=== PATIENT | female | born 1940 | race Asian ===

== ENCOUNTER 2017-08-22 06:40 | Inpatient (IN) | payer MEDICARE ==
[~2017-08-22] VITALS: Ht 154.9 cm; Wt 62.3 kg
[~2017-08-22 06:40] MED LIST: LOVA20TA2 PO
[2017-08-22] MEDS ORDERED: SODIUM CHLORIDE 0.9% 1,000ML IVBOLUS ONE (07:30)
[2017-08-22 07:33] LABS: HEMATOCRIT 40.5 % (34.6-47.8); HEMOGLOBIN 13.4 g/dL (11.7-16.4); WHITE BLOOD COUNT 13.8 x10^3/uL (3.4-10)
[2017-08-22 07:42] LABS: ASPARTATE AMINO TRANSFERASE 47 U/L (15-37); BLOOD UREA NITROGEN 7 mg/dL (7-18)
[2017-08-22] MEDS ORDERED: OMNIPAQUE 350 MG/ML, 100ML BOTTLE ONE (08:12)
[2017-08-22 08:57] LABS: PATH.CAST-FLAG NOT PRESENT; SPERM-FLAG NOT PRESENT; SRC-FLAG NOT PRESENT; XTAL-FLAG NOT PRESENT; YLC-FLAG NOT PRESENT
[2017-08-22] MEDS ORDERED: CEFOTETAN PMX 2GM/50ML 50 ML IV ONE (09:00)
[2017-08-22] MEDS: METRONIDAZOLE PMX 500MG/100ML 100 ML IV ONE ×2 (09:00→10:10)
[2017-08-22] MEDS ORDERED: METRONIDAZOLE PMX 500MG/100ML 100 ML ONE (09:16)
[2017-08-22] MEDS ORDERED: ONDANSETRON 2MG/ML, 2ML IVPush PRN (11:30)
[2017-08-22 12:08] VITALS: BP 128/73
[2017-08-22] MEDS: morphine SULFATE 10 MG/ML, 1ML IVPush PRN ×3 (12:45→23:31)
[2017-08-22] MEDS: NS + 20MEQ KCL 1,000 ML IV SCH ×2 (12:45→23:31)
[2017-08-22] MEDS ORDERED: FENTANYL PF 100 MCG/2ML ONE (13:03)
[2017-08-22] MEDS ORDERED: FLUMAZENIL 0.1 MG/1 ML, 5ML ONE (13:03)
[2017-08-22] MEDS ORDERED: MIDAZOLAM 1 MG/ML, 5ML ONE (13:03)
[2017-08-22] MEDS ORDERED: LIDOCAINE 1%, 20ML ONE (13:04)
[2017-08-22] MEDS ORDERED: NALOXONE 1 MG/ML, 2ML ONE (13:04)
[2017-08-22 14:34] VITALS: BP 139/72
[2017-08-22] MEDS ORDERED: LABETALOL 5MG/ML, 20ML IVPush PRN (15:00)
[2017-08-22] MEDS ORDERED: ACETAMINOPHEN 325 MG TABLET PO PRN (15:00)
[2017-08-22] MEDS: PIPERACILLIN/TAZO/PMX 3.375GM 50 ML IV SCH ×2 (16:26→22:24)
[2017-08-22] MEDS: HEPARIN 5,000 UNITS/ML, 1ML SQ SCH ×2 (16:26→23:31)
[2017-08-22 21:35] VITALS: BP 114/60
[2017-08-22] MEDS: LOVASTATIN 40 MG TABLET PO SCH (22:24)
[2017-08-23 02:38] VITALS: BP 110/62
[2017-08-23] MEDS: PIPERACILLIN/TAZO/PMX 3.375GM 50 ML IV SCH ×4 (04:07→22:25)
[2017-08-23] MEDS: morphine SULFATE 10 MG/ML, 1ML IVPush PRN ×4 (05:35→20:17)
[2017-08-23 06:49] LABS: HEMATOCRIT 36.2 % (34.6-47.8); HEMOGLOBIN 12.3 g/dL (11.7-16.4); WHITE BLOOD COUNT 16.3 x10^3/uL (3.4-10)
[2017-08-23 07:01] LABS: BLOOD UREA NITROGEN 7 mg/dL (7-18)
[2017-08-23 07:19] VITALS: BP 108/63
[2017-08-23] MEDS: HEPARIN 5,000 UNITS/ML, 1ML SQ SCH ×2 (09:13→16:24)
[2017-08-23] MEDS: NS + 20MEQ KCL 1,000 ML IV SCH ×2 (12:15→22:25)
[2017-08-23 15:06] VITALS: BP 110/60
[2017-08-23 19:45] VITALS: BP 111/66
[2017-08-23] MEDS: LOVASTATIN 40 MG TABLET PO SCH (20:16)
[2017-08-24] MEDS: HEPARIN 5,000 UNITS/ML, 1ML SQ SCH ×4 (00:25→23:57)
[2017-08-24] MEDS: HYDROcodone/APAP 5/325 TABLET PO PRN ×4 (00:42→20:47)
[2017-08-24 00:45] VITALS: BP 120/69
[2017-08-24] MEDS: PIPERACILLIN/TAZO/PMX 3.375GM 50 ML IV SCH ×4 (04:17→23:56)
[2017-08-24 06:07] LABS: HEMATOCRIT 34.9 % (34.6-47.8); HEMOGLOBIN 11.7 g/dL (11.7-16.4); WHITE BLOOD COUNT 13.1 x10^3/uL (3.4-10)
[2017-08-24 06:12] LABS: BLOOD UREA NITROGEN 6 mg/dL (7-18)
[2017-08-24 07:43] VITALS: BP 124/69
[2017-08-24] MEDS: NS + 20MEQ KCL 1,000 ML IV SCH ×2 (09:08→20:47)
[2017-08-24 12:31] VITALS: BP 126/70
[2017-08-24 18:23] VITALS: BP 115/68
[2017-08-24] MEDS: LOVASTATIN 40 MG TABLET PO SCH (20:47)
[2017-08-25 00:10] VITALS: BP 118/67
[2017-08-25] MEDS: HYDROcodone/APAP 5/325 TABLET PO PRN ×4 (01:43→22:53)
[2017-08-25 01:56] VITALS: BP 139/75
[2017-08-25] MEDS: NS + 20MEQ KCL 1,000 ML IV SCH ×2 (05:58→17:52)
[2017-08-25] MEDS: PIPERACILLIN/TAZO/PMX 3.375GM 50 ML IV SCH ×4 (05:58→23:51)
[2017-08-25 06:13] LABS: HEMATOCRIT 38.1 % (34.6-47.8); HEMOGLOBIN 12.7 g/dL (11.7-16.4); WHITE BLOOD COUNT 9.8 x10^3/uL (3.4-10)
[2017-08-25 06:40] LABS: ASPARTATE AMINO TRANSFERASE 19 U/L (15-37); BLOOD UREA NITROGEN 6 mg/dL (7-18)
[2017-08-25 06:52] VITALS: BP 128/68
[2017-08-25] MEDS: HEPARIN 5,000 UNITS/ML, 1ML SQ SCH ×3 (08:04→23:51)
[2017-08-25 12:57] VITALS: BP 121/69
[2017-08-25] MEDS ORDERED: ACETAMINOPHEN 325 MG TABLET PO PRN (18:30)
[2017-08-25] MEDS ORDERED: LABETALOL 5MG/ML, 20ML IVPush PRN (18:30)
[2017-08-25] MEDS ORDERED: ONDANSETRON 2MG/ML, 2ML IVPush PRN (18:30)
[2017-08-25 18:39] VITALS: BP 122/68
[2017-08-25] MEDS: LOVASTATIN 40 MG TABLET PO SCH (20:29)
[2017-08-26] MEDS: morphine SULFATE 10 MG/ML, 1ML IVPush PRN (00:15)
[2017-08-26 00:17] VITALS: BP 130/67
[2017-08-26] MEDS: HYDROcodone/APAP 5/325 TABLET PO PRN ×3 (05:09→17:56)
[2017-08-26] MEDS: PIPERACILLIN/TAZO/PMX 3.375GM 50 ML IV SCH ×3 (05:43→18:09)
[2017-08-26] MEDS: NS + 20MEQ KCL 1,000 ML IV SCH ×2 (05:43→14:42)
[2017-08-26 06:36] VITALS: BP 129/66
[2017-08-26] MEDS: HEPARIN 5,000 UNITS/ML, 1ML SQ SCH ×2 (09:44→16:28)
[2017-08-26 13:22] VITALS: BP 123/70
[2017-08-26 14:32] VITALS: BP 114/67
[2017-08-26] MEDS: LOVASTATIN 40 MG TABLET PO SCH (20:26)
[2017-08-26 20:36] VITALS: BP 150/74
[2017-08-27] MEDS: HYDROcodone/APAP 5/325 TABLET PO PRN ×3 (00:06→15:25)
[2017-08-27] MEDS: HEPARIN 5,000 UNITS/ML, 1ML SQ SCH ×2 (00:11→08:10)
[2017-08-27 01:00] VITALS: BP 116/71
[2017-08-27] MEDS: PIPERACILLIN/TAZO/PMX 3.375GM 50 ML IV SCH ×3 (01:13→12:00)
[2017-08-27] MEDS: NS + 20MEQ KCL 1,000 ML IV SCH ×2 (01:13→12:00)
[2017-08-27] MEDS: morphine SULFATE 10 MG/ML, 1ML IVPush PRN (05:55)
[2017-08-27 06:55] VITALS: BP 142/67
[2017-08-27 12:27] VITALS: BP 123/63
[2017-08-27] MEDS ORDERED: CIPR250T27 PO (13:20)
[2017-08-27] MEDS ORDERED: METR500T8 PO (13:20)
== END 2017-08-27 15:45 | disposition home or self-care (01) | DRG 391 ==
LOC: ED 07:16 → EDIP 10:05 → 4EST 11:51
PROVIDERS: ADMIT Family Medicine; ATTEND Family Medicine
PROC: 0W9J30Z Drainage of Pelvic Cavity with Drainage Device, Percutaneous Approach (ICD-10-PCS; principal; 2017-08-22)
DX: K57.20 Diverticulitis of large intestine with perforation and abscess without bleeding (principal); E43 Unspecified severe protein-calorie malnutrition; N13.30 Unspecified hydronephrosis; D72.829 Elevated white blood cell count, unspecified; E78.5 Hyperlipidemia, unspecified; E78.00 Pure hypercholesterolemia, unspecified; K80.20 Calculus of gallbladder without cholecystitis without obstruction; M19.90 Unspecified osteoarthritis, unspecified site
CPT/HCPCS: 36415; 49406; 74177; 75989; 80048; 80053; 81001; 83605; 83690; 84145; 85025; 87040; 87070; 87075; 87077; 87086; 87186; 87205; 96361; 96365; 96367; 99156; 99157; C1894; J1644; J2250; J2543; J3010; J3480; J3490; Q9967; C1729; C1769; J2270; J2310; J7030; S0074

== ENCOUNTER → 2017-09-17 | Outpatient (CLI) | payer MEDICARE ==
[~2017-09-17] MED LIST changes: +CIPR250T27 PO; +METR500T8 PO
== END | disposition home or self-care (01) ==
LOC: CFH 12:26
PROVIDERS: ATTEND Family Medicine
DX: Z12.31 Encounter for screening mammogram for malignant neoplasm of breast (principal)
CPT/HCPCS: 77063; G0202

== ENCOUNTER → 2017-10-26 | Outpatient (CLI) | payer MEDICARE ==
[~2017-10-26] MED LIST changes: +MULT-717 PO
[2017-10-26 13:27] LABS: BASOPHILS # (AUTO) 0.04 x10^3/uL (0-0.1); BASOPHILS % (AUTO) 1 % (0-1); EOSINOPHILS # (AUTO) 0.14 x10^3/uL (0-0.4); EOSINOPHILS % (AUTO) 2 % (1-7); LYMPHOCYTES # (AUTO) 1.74 x10^3/uL (1-3.4); LYMPHOCYTES % (AUTO) 28 % (22-44); MD NO; MEAN CORPUSCULAR HEMOGLOBIN 30.8 pg (27.0-34.8); MEAN CORPUSCULAR HGB CONC 33.8 g/dL (32.4-35.8); MEAN CORPUSCULAR VOLUME 91.1 fL (80-100); MEAN PLATELET VOLUME 8.8 fL (7.4-10.4); MONOCYTES # (AUTO) 0.49 x10^3/uL (0.2-0.8); MONOCYTES % (AUTO) 8 % (2-9); NEUTROPHILS # (AUTO) 3.73 x10^3/uL (1.8-6.8); NEUTROPHILS % (AUTO) 61 % (42-75); PLATELET COUNT 226 x10^3/uL (130-400); RED BLOOD COUNT 4.54 x10^6/uL (3.82-5.3); RED CELL DISTRIBUTION WIDTH 14.5 % (9.6-15.2)
[2017-10-26 13:32] LABS: ALBUMIN 3.5 g/dL (3.4-5.0); ANION GAP 8 mmol/L (5-15); CALCIUM 8.5 mg/dL (8.5-10.1); CHLORIDE 106 mmol/L (98-107)
[2017-10-26 13:35] LABS: ALANINE AMINOTRANSFERASE 31 U/L (12-78); ALKALINE PHOSPHATASE 66 U/L (45-117); BILIRUBIN,TOTAL 0.3 mg/dL (0.2-1.0); CREATININE 0.75 mg/dL (0.55-1.02)
== END | disposition home or self-care (01) ==
LOC: STAR 12:25
PROVIDERS: ATTEND Surgery
DX: Z01.818 Encounter for other preprocedural examination (principal)
CPT/HCPCS: 36415; 80053; 85025; 93005

== ENCOUNTER 2017-10-31 08:13 | Inpatient (IN) | payer MEDICARE ==
[2017-10-26 12:59] VITALS: BP 127/83
[~2017-10-31] VITALS: Ht 154.9 cm; Wt 63.3 kg
[~2017-10-31 08:13] MED LIST changes: +BUPIVACAINE/PF 0.5% ONE
[2017-10-31] MEDS ORDERED: LIDOCAINE 1%, 2ML ONE (08:48)
[2017-10-31] MEDS ORDERED: LACTATED RINGERS 1,000 ML IV SCH (09:14)
[2017-10-31] MEDS ORDERED: ERYT250C8 PO (09:17)
[2017-10-31] MEDS ORDERED: NEOM500T PO (09:17)
[2017-10-31] MEDS ORDERED: LIDOCAINE 1%, 2ML SQ PRN (09:30)
[2017-10-31] MEDS ORDERED: DEXAMETHASONE 4 MG/ML, 1ML ONE (10:04)
[2017-10-31] MEDS ORDERED: GLYCOPYRROLATE 0.2MG/1ML, 5ML ONE (10:04)
[2017-10-31] MEDS ORDERED: ROCURONIUM 10 MG/ML,10ML ONE (10:04)
[2017-10-31] MEDS ORDERED: PROPOFOL 10 MG/ML, 20ML ONE (10:04)
[2017-10-31] MEDS ORDERED: MIDAZOLAM 1 MG/ML, 2ML ONE (10:04)
[2017-10-31] MEDS ORDERED: LIDOCAINE-MPF 2% ,5ML ONE (10:04)
[2017-10-31] MEDS ORDERED: FENTANYL PF 250 MCG/5ML ONE (10:05)
[2017-10-31] MEDS ORDERED: METOCLOPRAMIDE 5 MG/ML, 2ML ONE (10:15)
[2017-10-31] MEDS ORDERED: CEFAZOLIN 1,000 MG ONE (10:33)
[2017-10-31] MEDS ORDERED: BUPIVACAINE/PF-EPI 0.5% 1:200K IM ONE (10:40)
[2017-10-31] MEDS ORDERED: PROMETHAZINE 25 MG/ML, 1ML ONE (11:45)
[2017-10-31] MEDS ORDERED: OXYcodone 5 MG/5 ML ORAL.SOL UDC ONE (11:46)
[2017-10-31] MEDS ORDERED: FENTANYL PF 100 MCG/2ML ONE (11:46)
[2017-10-31] MEDS: FENTANYL PF 100 MCG/2ML IV PRN ×3 (11:50→12:09)
[2017-10-31] MEDS ORDERED: ACETAMINOPHEN 325 MG TABLET PO PRN (12:00)
[2017-10-31] MEDS ORDERED: MEPERIDINE/PF 25MG/0.5ML IVPush PRN (12:00)
[2017-10-31] MEDS ORDERED: HYDROmorphone 1 MG/ML, 1ML IV PRN ×2 (12:00→15:00)
[2017-10-31] MEDS ORDERED: OXYcodone 5 MG/5 ML ORAL.SOL UDC PO PRN (12:00)
[2017-10-31] MEDS ORDERED: HYDROcodone/APAP 7.5-325MG/15ML UDC PO PRN (12:00)
[2017-10-31] MEDS ORDERED: hydrALAzine 20 MG/ML, 1ML IV PRN (12:00)
[2017-10-31] MEDS ORDERED: ONDANSETRON 2MG/ML, 2ML IVPush PRN (12:00)
[2017-10-31] MEDS ORDERED: LABETALOL 5MG/ML, 20ML IV PRN (12:00)
[2017-10-31] MEDS ORDERED: PROMETHAZINE 25 MG/ML, 1ML IV PRN (12:00)
[2017-10-31] MEDS ORDERED: MEPERIDINE/PF 50 MG/ML ONE (12:02)
[2017-10-31 14:22] VITALS: BP 116/60
[2017-10-31 14:27] VITALS: BP 99/51
[2017-10-31] MEDS ORDERED: morphine SULFATE 10 MG/ML, 1ML IV PRN (15:00)
[2017-10-31] MEDS ORDERED: POTASSIUM CHLORIDE 20 MEQ in LACTATED RINGERS 1,000 ML IV SCH (15:30)
[2017-10-31] MEDS ORDERED: ONDANSETRON 2MG/ML, 2ML IV PRN (15:30)
[2017-10-31] MEDS ORDERED: OXYcodone/APAP 5/325MG TABLET PO PRN (15:30)
[2017-10-31] MEDS: CEFOTETAN PMX 1GM/50ML 50 ML IVPB SCH (16:45)
[2017-10-31 20:14] VITALS: BP 108/60
[2017-10-31] MEDS ORDERED: LOVASTATIN 20 MG TABLET PO SCH (21:00)
[2017-10-31] MEDS: HYDROcodone/APAP 5/325 TABLET PO PRN (22:19)
[2017-11-01 00:23] VITALS: BP 109/61
[2017-11-01] MEDS: HYDROcodone/APAP 5/325 TABLET PO PRN ×3 (01:06→09:24)
[2017-11-01] MEDS: CEFOTETAN PMX 1GM/50ML 50 ML IVPB SCH (04:47)
[2017-11-01 04:58] VITALS: BP 109/57
[2017-11-01 05:23] LABS: BASOPHILS # (AUTO) 0.02 x10^3/uL (0-0.1); BASOPHILS % (AUTO) 0 % (0-1); EOSINOPHILS % (AUTO) 0 % (1-7); LYMPHOCYTES # (AUTO) 1.11 x10^3/uL (1-3.4); LYMPHOCYTES % (AUTO) 9 % (22-44); MD NO; MEAN CORPUSCULAR HEMOGLOBIN 30.5 pg (27.0-34.8); MEAN CORPUSCULAR HGB CONC 32.9 g/dL (32.4-35.8); MEAN CORPUSCULAR VOLUME 92.7 fL (80-100); MEAN PLATELET VOLUME 9.2 fL (7.4-10.4); MONOCYTES # (AUTO) 0.43 x10^3/uL (0.2-0.8); MONOCYTES % (AUTO) 4 % (2-9); NEUTROPHILS # (AUTO) 10.77 x10^3/uL (1.8-6.8); NEUTROPHILS % (AUTO) 87 % (42-75); PLATELET COUNT 213 x10^3/uL (130-400); RED BLOOD COUNT 4.44 x10^6/uL (3.82-5.3); RED CELL DISTRIBUTION WIDTH 14.4 % (9.6-15.2)
[2017-11-01] MEDS ORDERED: ENOXAPARIN 40 MG/0.4 ML SQ SCH (06:00)
[2017-11-01 06:52] VITALS: BP 101/43
[2017-11-01 12:25] VITALS: BP 104/55
[2017-11-01] MEDS ORDERED: HYDR-3240 PO (15:48)
[2017-11-01] MEDS ORDERED: CEPH-367 PO (15:48)
== END 2017-11-01 16:06 | disposition home or self-care (01) | DRG 339 ==
LOC: ORIP 08:13 → 4NOR 12:58 → DCLOUNGE 11-01 15:46
PROVIDERS: ADMIT Surgery; ATTEND Surgery
PROC: 0DTJ0ZZ Resection of Appendix, Open Approach (ICD-10-PCS; 2017-10-31)
PROC: 8E0W0CZ Robotic Assisted Procedure of Trunk Region, Open Approach (ICD-10-PCS; principal; 2017-10-31 10:30)
DX: K35.2 Acute appendicitis with generalized peritonitis (principal); K57.80 Diverticulitis of intestine, part unspecified, with perforation and abscess without bleeding; E78.5 Hyperlipidemia, unspecified; I10 Essential (primary) hypertension
CPT/HCPCS: 36415; 85025; 86850; 86900; 88304; J0690; J1100; J1650; J2175; J2250; J2550; J2704; J3010; J3475; J3490; J2765; J7120; S0074

== ENCOUNTER → 2019-03-03 | Outpatient (CLI) | payer MEDICARE ==
[~2019-03-03] MED LIST changes: -BUPIVACAINE/PF 0.5% ONE; +CEPH-367 PO; +ERYT250C8 PO; +HYDR-3240 PO; +METR-90 PO; -METR500T8 PO; +NEOM500T PO
== END | disposition home or self-care (01) ==
LOC: CFH 10:36
PROVIDERS: ATTEND Family Medicine
DX: Z12.31 Encounter for screening mammogram for malignant neoplasm of breast (principal); M85.89 Other specified disorders of bone density and structure, multiple sites
CPT/HCPCS: 77063; 77067; 77080

== ENCOUNTER 2019-03-18 10:19 | Outpatient (CLI) | payer MEDICARE | END 2019-03-18 23:59 | disposition home or self-care (01) | LOC: CFH 10:19 | PROVIDERS: ATTEND Family Medicine | DX: N60.01 Solitary cyst of right breast (principal) | CPT/HCPCS: 77065 ==

== ENCOUNTER 2019-04-30 07:07 | Outpatient (CLI) | payer MEDICARE ==
[2019-04-30] MEDS ORDERED: LIDOCAINE 1%, 20ML ONE (08:00)
[2019-04-30] MEDS ORDERED: LIDOCAINE 1%-EPI 1:100K, 20ML ONE (08:00)
[2019-04-30] MEDS ORDERED: SODIUM BICARBONATE 4.2%, 5ML ONE (08:00)
== END 2019-04-30 23:59 | disposition home or self-care (01) ==
LOC: CFH 07:07
PROVIDERS: ATTEND Family Medicine
DX: D05.11 Intraductal carcinoma in situ of right breast (principal)
CPT/HCPCS: 19081; 77065; 88305; 88341; 88342; 88360; J3490; 88361

== ENCOUNTER 2019-05-22 09:35 | Outpatient (CLI) | payer MEDICARE | END 2019-05-22 23:59 | disposition home or self-care (01) | LOC: STAR 09:35 | PROVIDERS: ATTEND Surgery | DX: Z01.818 Encounter for other preprocedural examination (principal); D05.91 Unspecified type of carcinoma in situ of right breast; I45.10 Unspecified right bundle-branch block | CPT/HCPCS: 93005 ==

== ENCOUNTER 2019-05-26 11:24 | Observation (INO) | payer MEDICARE ==
[~2019-05-26] VITALS: Ht 154.9 cm; Wt 68.0 kg
[2019-05-28 11:36] VITALS: BP 118/61
== END 2019-05-28 12:34 | disposition home or self-care (01) ==
LOC: OUT 11:24 → 4NOR 17:39 → OUT 23:58 → 4NOR 23:58 → DCLOUNGE 05-28 12:03
PROVIDERS: ADMIT Surgery; ATTEND Surgery
DX: D05.11 Intraductal carcinoma in situ of right breast (principal); E78.5 Hyperlipidemia, unspecified; Z79.899 Other long term (current) drug therapy
CPT/HCPCS: 19303; 38525; 38792; 88305; 88307; 96365; 96366; 96375; 96376; A9541; C1729; C9898; G0378; J0690; J1100; J2250; J2405; J2704; J3010; J3490; J7120; Q0162

== ENCOUNTER → 2019-11-18 | Outpatient (CLI) | payer MEDICARE ==
[~2019-11-18] MED LIST changes: +CALC1CAP8 PO; +GLUC15006 PO; +MULTIVITAMIN PO
== END | disposition home or self-care (01) ==
LOC: RAD 10:57
PROVIDERS: ATTEND Internal Medicine Hematology & Oncology
DX: C50.411 Malignant neoplasm of upper-outer quadrant of right female breast (principal)
CPT/HCPCS: 78306; A9503

== ENCOUNTER 2020-05-28 06:55 | Outpatient (CLI) | payer MEDICARE ==
[~2020-05-28 06:55] MED LIST changes: +ERYT250C37 PO; -ERYT250C8 PO
== END 2020-05-28 23:59 | disposition home or self-care (01) ==
LOC: CFH 06:55
PROVIDERS: ATTEND Internal Medicine Hematology & Oncology
DX: C50.411 Malignant neoplasm of upper-outer quadrant of right female breast (principal)
CPT/HCPCS: 76641; 77065; G0279

== ENCOUNTER → 2021-02-21 | Outpatient (CLI) | payer MEDICARE ==
[~2021-02-21] MED LIST changes: +HYDR-2214 PO; -HYDR-3240 PO
== END | disposition home or self-care (01) ==
LOC: CFH 11:06
PROVIDERS: ATTEND Internal Medicine Hematology & Oncology
DX: C50.411 Malignant neoplasm of upper-outer quadrant of right female breast (principal); M85.89 Other specified disorders of bone density and structure, multiple sites
CPT/HCPCS: 77080

== ENCOUNTER → 2021-04-29 | Outpatient (CLI) | payer MEDICARE ==
[~2021-04-29] MED LIST changes: +ASCO100018 PO; +ASPI81TA45 PO; +LETR2.5T3 PO; +LORA10TA75 PO
== END | disposition home or self-care (01) ==
LOC: STAR 10:20
PROVIDERS: ATTEND Student in an Organized Health Care Education/Training Program
DX: Z01.818 Encounter for other preprocedural examination (principal); D11.0 Benign neoplasm of parotid gland; I45.10 Unspecified right bundle-branch block
CPT/HCPCS: 93005

== ENCOUNTER 2021-06-27 14:07 | Outpatient (CLI) | payer MEDICARE ==
[~2021-06-27 14:07] MED LIST changes: +ACET-1600 PO
== END 2021-06-27 23:59 | disposition home or self-care (01) ==
LOC: CFH 14:07
PROVIDERS: ATTEND Family Medicine
DX: Z85.3 Personal history of malignant neoplasm of breast (principal)
CPT/HCPCS: 77061; 77065; G0279